=== PATIENT | female | born 1975 | race Hispanic/Latino ===

== ENCOUNTER 2016-07-19 14:06 | Outpatient (CLI) | payer MEDICAID ==
--- NOTE | 2016-07-20 12:33 | PET Report ---
PET SB TO MT subsequent: HISTORY: Restaging of colon cancer. TECHNIQUE: 11.7 millicuries F-18 FDG was administered intravenously. Noncontrast CT images and PET images were obtained from the skull base to the proximal thighs. Fused images were reviewed on a workstation. The patient's blood glucose level measured 94. COMPARISON: 12/09/14. FINDINGS: BRAIN: physiologic FDG uptake in the imaged brain. NECK: physiologic FDG uptake. MEDIASTINUM: physiologic FDG uptake. LUNGS: physiologic FDG uptake. PLEURA/PERICARDIUM: physiologic FDG uptake. THORACIC LYMPH NODES: physiologic FDG uptake. HEPATOBILIARY: The right hepatic lobe mass with central calcifications has increased from 3.9 x 2.9 cm to 5.0 x 8.0 cm. Max SUV has increased from 7.0 to 8.8. No new liver lesions are appreciated.. Mean liver SUV measures 3.1. PANCREAS: physiologic FDG uptake. SPLEEN: physiologic FDG uptake. ADRENAL GLANDS: physiologic FDG uptake. KIDNEYS/RENAL COLLECTING SYSTEMS: physiologic FDG uptake. BOWEL/MESENTERY: physiologic FDG uptake. PELVIC VISCERA: physiologic FDG uptake. ABDOMINAL/PELVIC LYMPH NODES: The previously described left lower quadrant lymph node with calcifications is stable in size at 1.3 cm but hypermetabolic activity has resolved. Max SUV measures 2.1. MUSCULOSKELETAL: physiologic FDG uptake. IMPRESSION: A mixed response to therapy is demonstrated since 12/09/14. A right hepatic lobe mass has increased in size and hypermetabolic activity as described. A left lower quadrant lymph node is now hypometabolic. No new areas of disease are appreciated.
== END 2016-07-19 14:07 | disposition home or self-care (01) ==
LOC: PET 14:06
PROVIDERS: ATTEND Internal Medicine Hematology & Oncology
DX: C18.8 Malignant neoplasm of overlapping sites of colon (principal); K76.89 Other specified diseases of liver; I89.8 Other specified noninfective disorders of lymphatic vessels and lymph nodes
CPT/HCPCS: 78815; 82962; A9552

== ENCOUNTER 2017-01-24 08:14 | Outpatient (CLI) | payer MEDICAID ==
[2017-01-24] MEDS ORDERED: FLUSH HEPARIN IV ONE ×2 (10:18→11:15)
--- NOTE | 2017-01-25 09:45 | PET Report ---
PET/CT:01/24/17 08:14:00 CLINICAL: Colon cancer restaging. RADIOPHARMACEUTICAL: 15.7mCi F18-FDG. COMPARISON: 07/19/16 PET/CT TECHNIQUE- Following intravenous injection of F-18 FDG and an approximately 60 minute uptake period, CT and PET images from the mid skull to the upper thighs were acquired with the patient in the fasted state. No contrast was administered. The CT protocol used for this PET CT study is designed for attenuation correction and anatomic localization of PET abnormalities. This dressmaker or tailor CT is not desired to produce and cannot replace, [id number] diagnostic CT scans with specific imaging protocols for different body parts and indications. Plasma glucose at the time of this test: 74g/dl. The standardized uptake values (SUV) are normalized to patient body weight and indicate the highest activity concentration (SUV max) in a given disease site. FINDINGS: Brain--Physiologic FDG uptake in the visualized regions of the brain. Neck--Physiologic FDG uptake . Chest--Physiologic FDG uptake in mediastinal blood pool and myocardium. Lungs--No abnormal uptake. A non-FDG avid right lower lobe lung nodule is slightly smaller and measures 7 x 7 mm. Pleura/pericardium--No abnormal uptake. Thoracic nodes--No abnormal uptake. Hepatobiliary--The previously described hepatic mass has the size and measures 4.8 x 3.8 x 5.1 cm with SUV 7.3 compared to 8.0 x 5.0 cm and SUV 8.8. Calcifications are identified centrally within the mass. The mass of the right lobe of the liver and of the left lobe of the liver. A second more subtle non-FDG avid peripheral inferior right hepatic mass at the liver capsule measures approximately 1.0 x 0.7 cm and is also partially calcified. This lesion has become more obvious as it has calcified. Liver background SUV mean, as a reference for comparing FDG studies, is 2.4 compared to 2.7 on the last exam. Spleen--No abnormal uptake. Pancreas--No abnormal uptake. Adrenal Glands--No abnormal uptake. Kidneys/Ureters/Bladder--No abnormal uptake. Abdominopelvic Nodes--No abnormal uptake. A heavily calcified non-FDG avid 1.2 x 0.8 cm left common iliac lymph node is not significantly changed. Bowel/Peritoneum/Mesentery--No abnormal uptake. Pelvic organs--No abnormal uptake. Bones/Soft Tissues--No abnormal uptake. Other findings: Left lower quadrant colostomy. IMPRESSION- 1. Partial response to therapy with reduced size of the previously identified hepatic metastasis.2. A second 1 cm right hepatic metastasis is non-FDG avid and has become apparent since it has developed calcifications. It was never FDG avid on prior exams. 3. A non-FDG avid right lower lobe lung nodule is slightly smaller. 4. Stable partially calcified non-FDG avid left common iliac lymph node.
== END 2017-01-24 08:15 | disposition home or self-care (01) ==
LOC: PET 08:14
PROVIDERS: ATTEND Internal Medicine Hematology & Oncology
DX: C78.7 Secondary malignant neoplasm of liver and intrahepatic bile duct (principal); C18.8 Malignant neoplasm of overlapping sites of colon; R91.1 Solitary pulmonary nodule; Z93.3 Colostomy status; J45.901 Unspecified asthma with (acute) exacerbation; J18.9 Pneumonia, unspecified organism; F32.9 Major depressive disorder, single episode, unspecified; Z79.899 Other long term (current) drug therapy
CPT/HCPCS: 78815; 82962; A9552; J1642

== ENCOUNTER 2017-06-27 11:00 | Outpatient (CLI) | payer MEDICAID ==
[2017-06-27 12:01] LABS: Blood Urea Nitrogen 10 mg/dL (7-17)
--- NOTE | 2017-06-27 14:44 | Cat Scan Report ---
FINAL REPORT EXAM: CT ABDOMEN PELVIS W CON HISTORY: C18.8 MALIGNANT NEOPLASM OF COLON TECHNIQUE: CT of the abdomen and pelvis was performed after the administration of intravenous contrast. Subsequently, CT of the abdomen and pelvis was performed in the delayed phase. Reconstructions were included in the coronal and sagittal planes. PRIORS: None. FINDINGS: Lower thorax: 3 millimeter subpleural nodule is seen in the lateral aspect of the right lower lobe on series 3, image 131. The visualized portions of the heart are normal. Liver: There is a large, heterogeneous multi lobular mass within right hepatic lobe centered within the 5th and 6th segments. Maximum transaxial dimensions of this mass are 10.0 x 6.7 centimeters. Several internal calcifications are seen within this mass. Another focal hypoattenuating mass is seen within the left hepatic lobe, segment 3 measuring 2.9 x 2.2 centimeters. Another small focal hypoattenuating focus is seen adjacent to the fissure for ligamentum teres measuring 2.8 x 1.2 centimeters. There is mild intrahepatic biliary ductal dilation secondary to the large right hepatic mass. Another tiny low-attenuation right hepatic lesion is seen separate from the larger mass may represent a simple cyst or additional site of metastasis. Gallbladder/ biliary system: No cholelithiasis. The common bile duct appears nondilated. Spleen: No splenic lesions are seen. Pancreas: No pancreatic lesions are seen. No pancreatic duct dilation. Kidneys: No renal masses, cysts or hydronephrosis. There is a 3 millimeter calculus in the inferior pole of the left kidney. No right renal calculi. Adrenal glands: No adrenal masses. Vasculature: The abdominal and pelvic vasculature is patent without variant anatomy. Lymph nodes: No enlarged lymph nodes are seen in the abdomen or pelvis. Bowel, mesentery, peritoneum: A heterogeneous mass is seen at the level of the lower rectum, likely extending into the posterior aspect of the vagina. The uterine cervix is ill-defined and may be involved with tumor as well. There is a short segment of normal caliber bowel with another heterogeneous mass involving the proximal sigmoid colon measuring 3.9 centimeters in length. Left lower quadrant diverting colostomy is seen. No free fluid or free air. The appendix is normal. No colonic diverticulosis. Urinary bladder: No filling defects are seen. Pelvis: Probable dominant left ovarian follicle is seen. Abdominal wall: No abdominal wall hernia or other subcutaneous findings. Bones: Probable L3 vertebral body hemangioma is seen. No definite skeletal metastases. IMPRESSION: 1. Heterogeneous mass involving the lower rectum, likely invading the posterior aspect of the vagina and possibly the uterine cervix concerning for neoplasm. Additional focal mass involving the proximal sigmoid colon. For better anatomic detail, consider further evaluation with pelvic MRI to completely assess the involved pelvic structures. 2. Multiple hepatic masses concerning for metastatic disease. 3. 3 millimeter right lower lobe pulmonary nodule which may represent a granuloma versus metastatic disease. 4. Nonobstructing left renal calculus.
--- NOTE | 2017-06-27 15:02 | Cat Scan Report ---
FINAL REPORT EXAM: CT CHEST W CON HISTORY: C18.8 MALIGNANT NEOPLASM OF COLON TECHNIQUE: CT of chest with IV contrast. Coronal and sagittal reconstructed images provided. PRIORS: None currently available. FINDINGS: 4.7 mm subpleural solid nodule right upper lobe series 3:39. 4.1 mm solid nodule right upper lobe series 3:61. 8.9 x 7.6 mm spiculated solid nodule in the right lower lobe series 3:63. 3.5 mm pleural-based solid nodule right lower lobe series 3:81. 4.5 mm pleural-based solid nodule near the dome of the diaphragm series 3:86. No pneumothorax. No effusion. No consolidation. No endobronchial lesion. Main pulmonary arteries are unremarkable. No pulmonary embolus. No aortic aneurysm. No dissection. Heart size unremarkable. No pericardial effusion. There is no axillary adenopathy. There is no hilar or mediastinal mass or adenopathy. Images of the esophagus are unremarkable. Images of the thyroid gland are unremarkable. Several low-attenuation lesions with heterogeneous different phases of enhancement are present within the liver suggesting metastatic disease. Largest lesion appears to be in the right and left liver on series 3:17 measuring approximately 8 x 5 cm. No suspicious osseous lesions on this limited examination of the skeleton. Metastatic disease better evaluated with bone scan. Degenerative changes are present in the spine. Right port catheter tip is present within the SVC. IMPRESSION: Several hepatic heterogeneous irregular low-attenuation lesions in different phases of enhancement suggest metastatic disease. Pulmonary nodules in the right lung are suspicious particularly the spiculated nodule in the right lower lobe.
== END 2017-06-27 11:01 | disposition home or self-care (01) ==
LOC: CT 11:00
PROVIDERS: ATTEND Internal Medicine Hematology & Oncology
DX: C18.8 Malignant neoplasm of overlapping sites of colon (principal); K76.89 Other specified diseases of liver; R91.8 Other nonspecific abnormal finding of lung field; N20.0 Calculus of kidney; M47.894 Other spondylosis, thoracic region; J45.901 Unspecified asthma with (acute) exacerbation; J18.9 Pneumonia, unspecified organism
CPT/HCPCS: 36415; 71260; 74177; 82565; 84520; Q9967

== ENCOUNTER 2017-07-15 15:02 | Outpatient (CLI) | payer MEDICAID | END 2017-07-15 15:03 | disposition home or self-care (01) | LOC: LABHHL 15:02 | PROVIDERS: ATTEND Internal Medicine Hematology & Oncology | DX: C22.8 Malignant neoplasm of liver, primary, unspecified as to type (principal) | CPT/HCPCS: 36415 ==

== ENCOUNTER 2017-07-31 22:40 | Emergency (ER) | payer MEDICAID ==
[2017-08-01 03:57] LABS: Bilirubin,Urine NEG (Negative); Blood,Urine NEG (Negative); Color,Urine Yellow (Yellow); Mucus,Urine FEW /HPF; Nitrite,Urine NEG (Negative); Protein,Urine <15 mg/dL mg/dL (Negative)
[2017-08-01] MEDS ORDERED: MORPHINE IV ONE ×2 (04:17→06:40)
[2017-08-01] MEDS ORDERED: ZOFRAN IV ONE (04:18)
[2017-08-01 05:00] LABS: Hematocrit 36.1 % (30.3-42.9); Hemoglobin 11.3 gm/dl (10.1-14.3); Mean Corpuscular HGB Conc 31 % (30-34); Mean Corpuscular Hemoglobin 26 pg (28-32); Mean Corpuscular Volume 83 fl (79-97); Platelet Count 298 K/mm3 (140-440); Red Blood Count 4.33 M/mm3 (3.65-5.03)
[2017-08-01 05:03] LABS: Red Cell Distribution Width 20.4 % (13.2-15.2)
[2017-08-01 05:11] LABS: INR 1.04 (0.87-1.13)
[2017-08-01 05:14] LABS: Alanine Aminotransferase 27 units/L (7-56); Albumin 3.5 g/dL (3.9-5); BUN/Creatinine Ratio 18; Blood Urea Nitrogen 7 mg/dL (7-17); Calcium 8.3 mg/dL (8.4-10.2); Hemolysis Index 2; Lipase 191 units/L (13-60)
[2017-08-01] MEDS ORDERED: VALIUM IV ONE (06:40)
[2017-08-01] MEDS ORDERED: NACL 0.9% 500 ML 500 ML IV ONE (06:42)
[2017-08-01 06:55] LABS: Band Neutrophils # (Manual) 0.2 K/mm3; Myelocytes # (Manual) 0.2 K/mm3; Total Cells Counted 100
[2017-08-01 06:56] LABS: Giant Platelets Few; Hypochromasia 1+; Platelet Estimate Consistent w Auto
[2017-08-01] MEDS ORDERED: DILAUDID IV ONE (08:08)
--- NOTE | 2017-08-01 08:40 | Cat Scan Report ---
CT abdomen and pelvis with contrast: Known colonic malignancy with metastasis presenting with abdominal pain. Following IV contrast administration images are obtained from the lower chest to the ischium. Coronal and sagittal 2-D reformatted images included. Comparison made to prior exam on June 27, 2017. Images of the lung bases again demonstrates a small right subpleural nodule. In addition there is a new 4.4 mm circumscribed nodule at the right lung base posteriorly. Large, lobulated hypoattenuating mass present in the right lobe. Several mildly dilated ducts peripheral to the mass. The superior aspect of the right lobe is inhomogeneous but no discrete mass. There are smaller hypoattenuating masses in the left lobe and near the ligamentum teres which are unchanged. There is a moderate fecal load in the proximal colon. An ostomy is located in the left lower quadrant. There are dilated small bowel loops in the left lower quadrant. There is a large rectal inhomogeneous mass. There is a right adnexal cyst. No bone lesions identified. No adenopathy identified. Compared to the patient's prior examination the liver masses and rectal mass are generally unchanged. The dilated small bowel loops are new. A right adnexal cyst is new and a left adnexal cyst previously noted has resolved. Impressions: 1. New right lower lobe nodule consistent with metastasis. 2. Dilated small bowel loops are noted. Possibility of partial small bowel obstruction is raised. 3. Staple hepatic metastases.
[2017-08-01] MEDS ORDERED: NACL 0.9% 1000 ML 1,000 ML IV ONE (08:44)
[2017-08-01] MEDS ORDERED: MOTRIN PO ONE (08:44)
--- NOTE | 2017-08-01 08:46 | Emergency Department Report ---
HPI - General Chief Complaint: Abdominal Pain Time Seen by Provider: 08/01/17 06:23 - HPI HPI: The patient is a 41-year-old female with a history of advanced colon cancer and liver cancer, who presents for evaluation of abdominal pain. The patient reports 2 days of recurrence of right upper quadrant abdominal pain, 10/10 in severity, sharp and throbbing in quality, exacerbated with movement. She shares that she has experienced similar pains in the past secondary to her long- standing malignant disease. She shares that she unsuccessfully attempted treating her pain with by mouth morphine tablets at home. She also admits to a nonproductive cough for the past one to 2 weeks, worsening for the past couple of days. The patient denies headache, neck pain or stiffness chest pain, dyspnea , blood in the stool, hematuria, flank pain, genital discharge. ED Past Medical Hx - Past Medical History Previous Medical History?: Yes Hx Hypertension: No Hx Congestive Heart Failure: No Hx Diabetes: No Hx Liver Disease: No Hx Renal Disease: No Hx Seizures: No Hx Asthma: Yes Hx COPD: No Additional medical history: 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, on Chemo - Surgical History Past Surgical History?: Yes Additional Surgical History: PAC - R, ex-lap to remove tumor, colostomy - Social History Smoking Status: Current Every Day Smoker Substance Use Type: Marijuana - Medications Home Medications: Home Medications Medication Instructions Recorded Confirmed Last Taken Type Albuterol Sulfate [Proventil HFA] 1 - 2 puff IH Q4H PRN #1 [email or web address] 07/13/14 08/01/17 Unknown Rx HYDROcodone/APAP 7.5-325 [[place] 1 each PO Q4-6H PRN 08/01/17 08/01/17 Unknown History 7.5/325] Ondansetron [Zofran ODT TAB] 8 mg PO Q8HR PRN 08/01/17 08/01/17 Unknown History ED Review of Systems ROS: Stated complaint: RECTAL BLEEDING; ABD PAIN; FEVER Other details as noted in HPI Constitutional: denies: fever ENT: denies: throat or neck pain Respiratory: denies: cough, shortness of breath Cardiovascular: denies: chest pain Endocrine: denies unexplained weight loss or gain Gastrointestinal: reports abdominal pain, nausea Genitourinary: denies: dysuria Musculoskeletal: denies: leg swelling Skin: denies: rash Neurological: denies: headache Hematological/Lymphatic: denies: easy bleeding or easy bruising Psych: denies sadness or hopelessness Physical Exam - Physical Exam Vital Signs: Vital Signs 07/31/17 08/01/17 08/01/17 22:50 02:58 03:01 Temperature 100.9 F H 98.4 F Pulse Rate 116 H 87 Respiratory 16 13 14 Rate Blood Pressure 132/60 Blood Pressure 126/86 [Right] O2 Sat by Pulse 100 99 94 Oximetry 08/01/17 08/01/17 08/01/17 05:00 06:00 07:00 Temperature Pulse Rate 96 H 85 91 H Respiratory 10 L 14 13 Rate Blood Pressure Blood Pressure 111/71 111/69 123/75 [Right] O2 Sat by Pulse 95 96 98 Oximetry Physical Exam: General: well-nourished, well-developed, no acute distress Head: Normocephalic, atraumatic Eyes: normal sclera ENT: Mucous membranes are pale and dry Neck: trachea midline, neck supple, No neck stiffness, no cervical adenopathy Respiratory: Breath sounds equal bilaterally, no wheezing, rales, or rhonchi Cardio: S1 and S2 present, no murmurs, rubs, gallops, capillary refill is delayed Abdomen: Normoactive bowel sounds, soft abdomen, RUQ and epigastric abd pain, no rigidity, no guarding or rebound tenderness Musc: No pitting edema Skin: No rash Neuro: no facial drooping, normal speech Psych: Normal affect ED Course Vital Signs 07/31/17 08/01/17 08/01/17 22:50 02:58 03:01 Temperature 100.9 F H 98.4 F Pulse Rate 116 H 87 Respiratory 16 13 14 Rate Blood Pressure 132/60 Blood Pressure 126/86 [Right] O2 Sat by Pulse 100 99 94 Oximetry 08/01/17 08/01/17 08/01/17 05:00 06:00 07:00 Temperature Pulse Rate 96 H 85 91 H Respiratory 10 L 14 13 Rate Blood Pressure Blood Pressure 111/71 111/69 123/75 [Right] O2 Sat by Pulse 95 96 98 Oximetry ED Medical Decision Making - Lab Data Result diagrams: 08/01/17 04:36 08/01/17 04:36 - Medical Decision Making The patient was seen and examined by myself. The patient is placed on a monitor and storage bin tender and continuous pulse ox. On initial evaluation, the patient was found to be in no distress. Evaluation orders are placed. IV access is established and the patient is given 1 L normal saline fluid bolus and Zofran for nausea, and IV morphine for pain. The patient is given a tablet of Motrin for her low-grade fever of 100.9 Fahrenheit Lab results exhibited elevated WBC of 18, and mildly elevated lipase of 190. Otherwise labs were non-concerning including hemoglobin, hematocrit, electrolytes, renal function, LFTs. CT scan abdomen and pelvis exhibits multiple hepatic masses, right lower pulmonary lobe mass, colonic masses, and was grossly unchanged from previous CT scan. Medical records are reviewed and revealed that the patient has long-standing history of chronic elevated WBC. As the patient is febrile and recently on chemotherapy, the patient will be treated for suspected bacteremia. The patient is given IV Zosyn. The on-call hospitalist service was contacted. They agreed to admit the patient for further treatment and close monitoring. The ED admit order was placed. The patient was admitted in guarded condition. Critical care attestation.: If time is entered above; I have spent that time in minutes in the direct care of this critically ill patient, excluding procedure time. ED Disposition Clinical Impression: Acute abdominal pain in right upper quadrant, Colon cancer metastasized to multiple sites, Mass of multiple sites of liver Pancreatitis, acute Qualifiers: Pancreatitis type: unspecified pancreatitis type Acute pancreatitis complication: unspecified Qualified Code(s): K85.90 - Acute pancreatitis without necrosis or infection, unspecified Disposition: OP ADMIT IP TO THIS HOSP Is pt being admited?: Yes Does the pt Need Aspirin: Yes Condition: Serious Instructions: Abdominal Pain (ED) Referrals: COLEEN CONNELLY MD [Primary Care Provider] - 3-5 Days Time of Disposition: 08:15
[2017-08-01] MEDS ORDERED: BABY ASPIRIN PO ONE (09:16)
--- NOTE | 2017-08-01 09:56 | XRay Report ---
Portable chest: Fever, cough. There is a port entering the right jugular vein the tip at the superior cavoatrial junction. The lungs are clear the mediastinal contour is unremarkable. There is no interval change when compared to prior examination in July 2014. Impression: No acute findings.
[2017-08-01] MEDS ORDERED: PROAIR IH PRN (11:54)
[2017-08-01] MEDS ORDERED: ZOFRAN IV PRN (11:55)
[2017-08-01] MEDS ORDERED: DILAUDID IV PRN (11:56)
--- NOTE | 2017-08-01 11:59 | History and Physical Report ---
History of Present Illness Date of examination: 08/01/17 Date of admission: 08/01/17 09:31 Chief complaint: Right upper quadrant pain History of present illness: 41 year old female with past medical history significant for stage IV colon cancer metastasized to the liver and lung on chemotherapy, tobacco abuse presented to the emergency department complaining of right upper quadrant pain for the last 2 weeks, pain is sometimes sharp and sometimes dull aching pain, 10 out of 10 in intensity at its max, with radiation to the right shoulder, associated with fever, nausea and vomiting. Aggravated by eating elevated was hydrocodone. Patient has been followed Dr. Tolbert for her chemotherapy. Patient believed that the pain is due to the morphine she was given. She said the pain started after she took 2 pills of morphine. Patient said she had flu 2 weeks ago and was given Tamiflu she said she took all of them except one tab. Currently patient denied runny nose, cough. After she was given pain medications in the emergency department patient said abdominal pain subsided, no fever, no nausea or vomiting, rather she said she is starving. Patient denied chest pain, palpitations. REVIEW OF SYSTEMS: GENERAL: no weight change, no fatigue, no fever HEAD: no head ache EYES: no blurry vision, no acute visual loss EARS: no hearing loss, no discharge, no earache NOSE: no stuffiness, no sneezing, no discharge MOUTH, THROAT AND NECK: no bleeding gums, no sore throat, no swollen neck CARDIAC: no palpitations, no dyspnea on exertion, no orthopnea, no PND, no edema , no chest pain RESPIRATORY: no shortness of breath, no wheeze, no cough, no sputum, no hemoptysis, no asthma GI: As stated in the HPI. URINARY: no change in frequency, no urgency, no polyuria, no hematuria, no incontinence MUSCULOSKELETAL: no muscle weakness, no pain, no joint stiffness NEUROLOGIC: no loss of sensation/numbness, no tingling, no tremors, no weakness/ paralysis HEMATOLOGIC: no anemia, no easy bruising SKIN: no rashes ENDOCRINE: no heat/cold intolerance, no polyuria, no polydipsia, no thyroid problems, no diabetes PSYCHIATRIC: no anxiety, no depression, no suicidal ideations Past History Past Medical History: cancer Past Surgical History: bowel surgery (laparotomy with colostomy) Social history: smoking (cigarettes and marijuana), full code. denies: alcohol abuse, prescription drug abuse, IV drug use Family history: CAD (father), stroke (father) Medications and Allergies Allergies Allergy/AdvReac Type Severity Reaction Status Date / Time No Known Allergies Allergy Verified 04/14/14 07:32 Home Medications Medication Instructions Recorded Confirmed Last Taken Type Albuterol Sulfate [Proventil HFA] 1 - 2 puff IH Q4H PRN #1 hfa.[email or web address] 07/13/14 08/01/17 Unknown Rx HYDROcodone/APAP 7.5-325 [[place] 1 each PO Q4-6H PRN 08/01/17 08/01/17 Unknown History 7.5/325] Ondansetron [Zofran ODT TAB] 8 mg PO Q8HR PRN 08/01/17 08/01/17 Unknown History Active Meds: Active Medications Acetaminophen/Hydrocodone Bitart ([place] 7.5/325) 1 each PO Q4-6H PRN PRN Reason: Pain Albuterol (Proair) 2 puff IH Q4H PRN PRN Reason: Wheezing Hydromorphone HCl (Dilaudid) 1 mg IV Q4H PRN PRN Reason: Pain , Severe (7-10) Piperacillin Sod/Tazobactam Sod (Zosyn/Ns 3.375gm/50ml) 3.375 gm in 50 mls @ 100 mls/hr IV Q6HR [facility] Ondansetron HCl (Zofran) 4 mg IV Q8H PRN PRN Reason: Nausea And Vomiting Exam - Physical Exam Narrative exam: Not in cardiopulmonary distress. The patient appeared chronically sick looking. Vital signs as documented. Head exam is unremarkable. No scleral icterus . Neck is without jugular venous distension, thyromegaly, or carotid bruits. Lungs are clear to auscultation. Cardiac exam reveals regular rate and Rhythm. First and second heart sounds normal. No murmurs, rubs or gallops. Abdominal exam reveals nontender, soft. Extremities are nonedematous and both femoral and pedal pulses are normal. KNITTING SUPERVISOR: Alert and oriented 3. No focal weakness. - Constitutional Vitals: Temp Pulse Resp BP Pulse Ox 98.4 F 91 H 13 123/75 98 08/01/17 03:01 08/01/17 07:00 08/01/17 07:00 08/01/17 07:00 08/01/17 07:00 Results - Labs CBC & Chem 7: 08/01/17 04:36 08/01/17 04:36 Labs: Laboratory Last Values WBC 18.9 K/mm3 (4.5-11.0) H 08/01/17 04:36 RBC 4.33 M/mm3 (3.65-5.03) 08/01/17 04:36 Hgb 11.3 gm/dl (10.1-14.3) 08/01/17 04:36 Hct 36.1 % (30.3-42.9) 08/01/17 04:36 MCV 83 fl (79-97) 08/01/17 04:36 MCH 26 pg (28-32) L 08/01/17 04:36 MCHC 31 % (30-34) 08/01/17 04:36 RDW 20.4 % (13.2-15.2) H 08/01/17 04:36 Plt Count 298 K/mm3 (140-440) 08/01/17 04:36 Add Manual Diff Complete 08/01/17 04:36 Total Counted 100 08/01/17 04:36 Seg Neuts % (Manual) 49.0 % (40.0-70.0) 08/01/17 04:36 Band Neutrophils % 1.0 % 08/01/17 04:36 Lymphocytes % (Manual) 14.0 % (13.4-35.0) 08/01/17 04:36 Reactive Lymphs % (Man) 0 % 08/01/17 04:36 Monocytes % (Manual) 16.0 % (0.0-7.3) H 08/01/17 04:36 Eosinophils % (Manual) 15.0 % (0.0-4.3) H 08/01/17 04:36 Basophils % (Manual) 2.0 % (0.0-1.8) H 08/01/17 04:36 Metamyelocytes % 2.0 % 08/01/17 04:36 Myelocytes % 1.0 % 08/01/17 04:36 Promyelocytes % 0 % 08/01/17 04:36 Blast Cells % 0 % 08/01/17 04:36 Nucleated RBC % Not Reportable 08/01/17 04:36 Seg Neutrophils # Man 9.3 K/mm3 (1.8-7.7) H 08/01/17 04:36 Band Neutrophils # 0.2 K/mm3 08/01/17 04:36 Lymphocytes # (Manual) 2.6 K/mm3 (1.2-5.4) 08/01/17 04:36 Abs React Lymphs (Man) 0.0 K/mm3 08/01/17 04:36 Monocytes # (Manual) 3.0 K/mm3 (0.0-0.8) H 08/01/17 04:36 Eosinophils # (Manual) 2.8 K/mm3 (0.0-0.4) H 08/01/17 04:36 Basophils # (Manual) 0.4 K/mm3 (0.0-0.1) H 08/01/17 04:36 Metamyelocytes # 0.4 K/mm3 08/01/17 04:36 Myelocytes # 0.2 K/mm3 08/01/17 04:36 Promyelocytes # 0.0 K/mm3 08/01/17 04:36 Blast Cells # 0.0 K/mm3 08/01/17 04:36 WBC Morphology Not Reportable 08/01/17 04:36 Hypersegmented Neuts Not Reportable 08/01/17 04:36 Hyposegmented Neuts Not Reportable 08/01/17 04:36 Hypogranular Neuts Not Reportable 08/01/17 04:36 Smudge Cells Not Reportable 08/01/17 04:36 Toxic Granulation Not Reportable 08/01/17 04:36 Toxic Vacuolation Not Reportable 08/01/17 04:36 Dohle Bodies Not Reportable 08/01/17 04:36 Pelger-Huet Anomaly Not Reportable 08/01/17 04:36 Audrey Rods Not Reportable 08/01/17 04:36 Platelet Estimate Consistent w auto 08/01/17 04:36 Clumped Platelets Not Reportable 08/01/17 04:36 Plt Clumps, EDTA Not Reportable 08/01/17 04:36 Large Platelets Not Reportable 08/01/17 04:36 Giant Platelets Few 08/01/17 04:36 Platelet Satelliting Not Reportable 08/01/17 04:36 Plt Morphology Comment Not Reportable 08/01/17 04:36 RBC Morphology Not Reportable 08/01/17 04:36 Dimorphic RBCs Not Reportable 08/01/17 04:36 Polychromasia Not Reportable 08/01/17 04:36 Hypochromasia 1+ 08/01/17 04:36 Poikilocytosis Not Reportable 08/01/17 04:36 Anisocytosis Not Reportable 08/01/17 04:36 Microcytosis Not Reportable 08/01/17 04:36 Macrocytosis Not Reportable 08/01/17 04:36 Spherocytes Not Reportable 08/01/17 04:36 Pappenheimer Bodies Not Reportable 08/01/17 04:36 Sickle Cells Not Reportable 08/01/17 04:36 Target Cells Not Reportable 08/01/17 04:36 Tear Drop Cells Not Reportable 08/01/17 04:36 Ovalocytes Not Reportable 08/01/17 04:36 Helmet Cells Not Reportable 08/01/17 04:36 Sparks-Seibert Bodies Not Reportable 08/01/17 04:36 [place] Rings Not Reportable 08/01/17 04:36 Cristina Cells Not Reportable 08/01/17 04:36 Bite Cells Not Reportable 08/01/17 04:36 Crenated Cell Not Reportable 08/01/17 04:36 Elliptocytes Not Reportable 08/01/17 04:36 Acanthocytes (Spur) Not Reportable 08/01/17 04:36 Rouleaux Not Reportable 08/01/17 04:36 Hemoglobin C Crystals Not Reportable 08/01/17 04:36 Schistocytes Not Reportable 08/01/17 04:36 Malaria parasites Not Reportable 08/01/17 04:36 Tim Bodies Not Reportable 08/01/17 04:36 Hem Pathologist Commnt No 08/01/17 04:36 PT 14.1 Sec. (12.2-14.9) 08/01/17 04:36 INR 1.04 (0.87-1.13) 08/01/17 04:36 APTT 37.0 Sec. (24.2-36.6) H 08/01/17 04:36 Sodium 135 mmol/L (137-145) L 08/01/17 04:36 Potassium 4.0 mmol/L (3.6-5.0) 08/01/17 04:36 Chloride 97.1 mmol/L (98-107) L 08/01/17 04:36 Carbon Dioxide 27 mmol/L (22-30) 08/01/17 04:36 Anion Gap 15 mmol/L 08/01/17 04:36 BUN 7 mg/dL (7-17) 08/01/17 04:36 Creatinine 0.4 mg/dL (0.7-1.2) L 08/01/17 04:36 Estimated GFR > 60 ml/min 08/01/17 04:36 BUN/Creatinine Ratio 18 % 08/01/17 04:36 Glucose 99 mg/dL (65-100) 08/01/17 04:36 Lactic Acid 2.00 mmol/L (0.7-2.0) 08/01/17 09:46 Calcium 8.3 mg/dL (8.4-10.2) L 08/01/17 04:36 Total Bilirubin 0.40 mg/dL (0.1-1.2) 08/01/17 04:36 AST 48 units/L (5-40) H 08/01/17 04:36 ALT 27 units/L (7-56) 08/01/17 04:36 Alkaline Phosphatase 291 units/L (35-129) H 08/01/17 04:36 Total Protein 6.8 g/dL (6.3-8.2) 08/01/17 04:36 Albumin 3.5 g/dL (3.9-5) L 08/01/17 04:36 Albumin/Globulin Ratio 1.1 % 08/01/17 04:36 Lipase 191 units/L (13-60) H 08/01/17 04:36 Urine Color Yellow (Yellow) 07/31/17 Unknown Urine Turbidity Clear (Clear) 07/31/17 Unknown Urine pH 6.0 (5.0-7.0) 07/31/17 Unknown Ur Specific [place] 1.025 (1.003-1.030) 07/31/17 Unknown Urine Protein <15 mg/dl mg/dL (Negative) 07/31/17 Unknown Urine Glucose (UA) Neg mg/dL (Negative) 07/31/17 Unknown Urine Ketones Neg mg/dL (Negative) 07/31/17 Unknown Urine Blood Neg (Negative) 07/31/17 Unknown Urine Nitrite Neg (Negative) 07/31/17 Unknown Urine Bilirubin Neg (Negative) 07/31/17 Unknown Urine Urobilinogen 2.0 mg/dL (<2.0) 07/31/17 Unknown Ur Leukocyte Esterase Neg (Negative) 07/31/17 Unknown Urine WBC (Auto) 1.0 /HPF (0.0-6.0) 07/31/17 Unknown Urine RBC (Auto) 6.0 /HPF (0.0-6.0) 07/31/17 Unknown U Epithel Cells (Auto) 5.0 /HPF (0-13.0) 07/31/17 Unknown Urine Mucus Few /HPF 07/31/17 Unknown Blood Type A POSITIVE 08/01/17 04:36 Antibody Screen Negative 08/01/17 04:36 - Imaging and Cardiology CT scan - abdomen: image reviewed Assessment and Plan Assessment and plan: Pancreatitis - Related incident by typical abdominal pain and elevated lipase - Bowel rest, pain control, IV fluids Stage IV cancer metastasized to the liver, lung - Pain control - Oncology consult Leukocytosis, with fever -Due to SIRS versus cancer - Patient started empirically with Zosyn DVT prophylaxis - Lovenox Disposition - Admit to medical floor. Advance Directives: Yes VTE prophylaxis?: Chemical Plan of care discussed with patient/family: Yes
[2017-08-01] MEDS ORDERED: NORCO 7.5/325 PO PRN (12:00)
[2017-08-01] MEDS ORDERED: ZOSYN/NS 3.375GM/50ML 3.375 GM/50 ML BAG IV SCH (12:00)
[2017-08-01] MEDS ORDERED: PROVENTIL IH PRN (12:15)
[2017-08-01] MEDS ORDERED: FLUSH HEPARIN IV ONE (12:58)
[2017-08-01 13:51] VITALS: BP 117/69
--- NOTE | 2017-08-01 18:21 | Discharge Summary ---
Providers - Providers Date of discharge: 08/01/17 08/01/17 11:57 Consult to Physician [CONS] Routine Consulting Provider: PARUL CASTILLO Reason For Exam: colon ca on chemo followed by Dr Tomasz Landis consult to:: Hem/Onc Notified:: Y If yes, spoke with:: VERONICA SEVILLA Time called:: 12:20 Primary care physician: COLEEN CONNELLY Hospitalization Reason for admission: pancreatitis Condition: Serious Pertinent studies: CT abdomen and pelvis Hospital course: Patient left AGAINST MEDICAL ADVICE when she was in the emergency department. Management was started as stated in the HPI. Disposition: DC-07 LEFT AGAINST MED ADVICE Time spent for discharge: 25 minutes - Discharge Diagnoses (1) Acute abdominal pain in right upper quadrant Status: Acute (2) Colon cancer metastasized to multiple sites Status: Chronic (3) Pancreatitis, acute Status: Acute Qualifiers: Pancreatitis type: unspecified pancreatitis type Acute pancreatitis complication: unspecified Qualified Code(s): K85.90 - Acute pancreatitis without necrosis or infection, unspecified Core Measure Documentation - Palliative Care Palliative Care/ Comfort Measures: Not Applicable - Core Measures Any of the following diagnoses?: none Exam - Physical Exam Narrative exam: Not in cardiopulmonary distress. The patient appeared chronically sick looking. Vital signs as documented. Head exam is unremarkable. No scleral icterus . Neck is without jugular venous distension, thyromegaly, or carotid bruits. Lungs are clear to auscultation. Cardiac exam reveals regular rate and Rhythm. First and second heart sounds normal. No murmurs, rubs or gallops. Abdominal exam reveals nontender, soft. Extremities are nonedematous and both femoral and pedal pulses are normal. EVIDENCE SPECIALIST: Alert and oriented 3. No focal weakness. - Constitutional Vitals: Temp Pulse Resp BP Pulse Ox 98.4 F 97 H 21 117/69 97 08/01/17 11:00 08/01/17 11:00 08/01/17 11:00 08/01/17 11:00 08/01/17 11:00 Plan Activity: other (Patient left AMA) Diet: advance as tolerated Follow up with: COLEEN CONNELLY MD [Primary Care Provider] - 3-5 Days
== END 2017-08-01 13:52 | disposition left against medical advice (07) ==
LOC: ED 22:40 → UNDOADMIN 08-01 09:31 → 4A 08-01 09:31 → ED 08-01 13:52
DX: K85.90 Acute pancreatitis without necrosis or infection, unspecified (principal); F17.200 Nicotine dependence, unspecified, uncomplicated; F12.10 Cannabis abuse, uncomplicated; C18.9 Malignant neoplasm of colon, unspecified; C78.7 Secondary malignant neoplasm of liver and intrahepatic bile duct
CPT/HCPCS: 36415; 71045; 74177; 80053; 81001; 82140; 83690; 85007; 85025; 85610; 85730; 86850; 86900; 86901; 87040; 87400; 96361; 96374; 96375; 99285; J1170; J1642; J2270; J2405; J7030; J7040; Q9967; J2543

== ENCOUNTER 2017-08-12 18:13 | Emergency (ER) | payer MEDICAID ==
[2017-08-12] MEDS ORDERED: NACL 0.9% 1000 ML 1,000 ML IV ONE (18:52)
[2017-08-12 19:10] LABS: Basophils # (Auto) 0.1 K/mm3 (0.0-0.1); Basophils % (Auto) 1.2 % (0.0-1.8); Eosinophils # (Auto) 0.4 K/mm3 (0.0-0.4); Eosinophils % (Auto) 4.1 % (0.0-4.3); Hematocrit 35.1 % (30.3-42.9); Hemoglobin 11.6 gm/dl (10.1-14.3); Lymphocytes # (Auto) 1.3 K/mm3 (1.2-5.4); Lymphocytes % (Auto) 12.8 % (13.4-35.0); Mean Corpuscular HGB Conc 33 % (30-34); Mean Corpuscular Hemoglobin 28 pg (28-32); Mean Corpuscular Volume 84 fl (79-97); Monocytes # (Auto) 0.5 K/mm3 (0.0-0.8); Monocytes % (Auto) 4.9 % (0.0-7.3); Platelet Count 377 K/mm3 (140-440); Red Blood Count 4.21 M/mm3 (3.65-5.03)
[2017-08-12 19:12] LABS: Red Cell Distribution Width 20.5 % (13.2-15.2)
[2017-08-12 19:21] LABS: INR 0.95 (0.87-1.13)
[2017-08-12 19:22] LABS: Partial Thromboplastin Time 31.5 Sec. (24.2-36.6)
[2017-08-12 19:29] LABS: Alanine Aminotransferase 22 units/L (7-56); Albumin 3.9 g/dL (3.9-5); BUN/Creatinine Ratio 18; Blood Urea Nitrogen 7 mg/dL (7-17); Calcium 8.9 mg/dL (8.4-10.2); Hemolysis Index 4; Lipase 31 units/L (13-60)
[2017-08-12] MEDS ORDERED: DILAUDID IV ONE (22:50)
--- NOTE | 2017-08-12 23:04 | Emergency Department Report ---
ED GI Bleed HPI - General Chief complaint: GI Bleed Stated complaint: RECTAL BLEEDING Time Seen by Provider: 08/12/17 22:37 Source: patient, RN notes reviewed, old records reviewed Mode of arrival: Ambulatory Limitations: No Limitations - History of Present Illness Initial comments: This is a 41-year-old female, whom I have evaluated in the past, patient has a past medical history of diverting colostomy, colon cancer with metastatic disease, right-sided thoracic [place], patient seen in this hospital on August 01, had a CT scan of the abdomen and pelvis which demonstrated nonspecific dilated bowel loops, as well as nonspecific inhomogeneous rectal mass. Oncology: Dr. Castillo Patient presents to the ER with a complaint of rectal bleeding since 5:00 this evening. It is constant. There is no trauma. It is associated with diffuse abdominal pain which started one hour ago. The pain is sharp, increases with palpation and decreases with rest. Patient endorses no blood in her colostomy bag. She denies urinary symptoms. She denies chest pain and shortness of breath. MD complaint: blood streaked stool, gross hematochezia -: Gradual Location: diffuse Radiation: none Quality: cramping Consistency: constant Improves with: none Worsens with: none Context: history of GI bleed, other Associated Symptoms: abdominal pain. denies: vomiting, epistaxis, fever/chills , headaches, loss of appetite, malaise, easy bruising, rash, other bleeding, shortness of breath, syncope, weakness - Related Data Home Medications Medication Instructions Recorded Confirmed Last Taken HYDROcodone/APAP 7.5-325 [[place] 1 each PO Q4-6H PRN 08/01/17 08/01/17 Unknown 7.5/325] Ondansetron [Zofran ODT TAB] 8 mg PO Q8HR PRN 08/01/17 08/01/17 Unknown Previous Rx's Medication Instructions Recorded Last Taken Type Albuterol Sulfate [Proventil HFA] 1 - 2 puff IH Q4H PRN #1 hfa.aer.ad 07/13/14 Unknown Rx Ondansetron [Zofran Odt] 4 mg PO Q8HR PRN #20 tab.rapdis 08/13/17 Unknown Rx oxyCODONE [Roxicodone] 5 mg PO Q6HR PRN #15 tablet 08/13/17 Unknown Rx Allergies Allergy/AdvReac Type Severity Reaction Status Date / Time No Known Allergies Allergy Verified 04/14/14 07:32 ED Review of Systems ROS: Stated complaint: RECTAL BLEEDING Other details as noted in HPI ED Past Medical Hx - Past Medical History Previous Medical History?: Yes Hx Hypertension: No Hx Congestive Heart Failure: No Hx Diabetes: No Hx Liver Disease: No Hx Renal Disease: No Hx of Cancer: Yes (colon) Hx Seizures: No Hx Asthma: Yes Hx COPD: No Additional medical history: 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, on Chemo - Surgical History Past Surgical History?: Yes Additional Surgical History: PAC - R, ex-lap to remove tumor, colostomy - Social History Smoking Status: Current Every Day Smoker Substance Use Type: Non Opiate Pain, Prescribed - Medications Home Medications: Home Medications Medication Instructions Recorded Confirmed Last Taken Type Albuterol Sulfate [Proventil HFA] 1 - 2 puff IH Q4H PRN #1 hfa.aer.ad 07/13/14 08/01/17 Unknown Rx HYDROcodone/APAP 7.5-325 [[place] 1 each PO Q4-6H PRN 08/01/17 08/01/17 Unknown History 7.5/325] Ondansetron [Zofran ODT TAB] 8 mg PO Q8HR PRN 08/01/17 08/01/17 Unknown History Ondansetron [Zofran Odt] 4 mg PO Q8HR PRN #20 tab.rapdis 08/13/17 Unknown Rx oxyCODONE [Roxicodone] 5 mg PO Q6HR PRN #15 tablet 08/13/17 Unknown Rx ED Physical Exam - General Limitations: No Limitations General appearance: alert, in no apparent distress - Head Head exam: Present: atraumatic, normocephalic - Eye Eye exam: Present: normal appearance, EOMI. Absent: nystagmus - ENT ENT exam: Present: normal exam, normal orophraynx, mucous membranes moist, normal external ear exam - Neck Neck exam: Present: normal inspection, full ROM - Respiratory Respiratory exam: Present: normal lung sounds bilaterally. Absent: respiratory distress - Cardiovascular Cardiovascular Exam: Present: regular rate, normal rhythm, normal heart sounds. Absent: systolic murmur, diastolic murmur, rubs, gallop - GI/Abdominal GI/Abdominal exam: Present: soft, tenderness, normal bowel sounds, other (there is mild diffuse abdominal tenderness with no rebound, guarding or peritoneal signs). Absent: distended, guarding, rebound, rigid, pulsatile mass - Rectal Rectal exam: Present: normal inspection, normal rectal tone, bloody stool, other (escorted by nurse Jada) - Extremities Exam Extremities exam: Present: normal inspection, full ROM, normal capillary refill. Absent: pedal edema, joint swelling, calf tenderness - Back Exam Back exam: Present: normal inspection, CVA tenderness (R) - Neurological Exam Neurological exam: Present: alert, oriented X3, CN II-XII intact, normal gait, other (Extraocular movements intact. Tongue midline. No facial droop. Facial sensation intact to light touch in the V1, V2, V3 distribution bilaterally. 5 and 5 strength in 4 extremities.. Sensation is intact to light touch in 4 extremities.). Absent: motor sensory deficit - Psychiatric Psychiatric exam: Present: anxious - Skin Skin exam: Present: warm, dry, intact, normal color. Absent: rash ED Course Vital Signs 08/12/17 08/13/17 08/13/17 18:48 01:28 03:25 Temperature 97.9 F Pulse Rate 86 87 Respiratory 18 16 13 Rate Blood Pressure 118/70 Blood Pressure [Left] O2 Sat by Pulse 100 100 Oximetry 08/13/17 08/13/17 08/13/17 03:27 03:29 03:30 Temperature Pulse Rate 75 77 81 Respiratory 13 14 14 Rate Blood Pressure Blood Pressure [Left] O2 Sat by Pulse Oximetry 08/13/17 03:51 Temperature Pulse Rate 79 Respiratory 16 Rate Blood Pressure Blood Pressure 103/62 [Left] O2 Sat by Pulse 96 Oximetry - Reevaluation(s) Reevaluation #1: 08/12/17 23:11 Differential diagnosis, including but not limited to: Obstruction, colitis, diverticulitis, renal colic, urinary tract infection, worsening metastatic disease, bleeding rectal mass Assessment and plan: 41-year-old female with diverting colostomy, no blood from colostomy tube, recent CAT scan demonstrated an inhomogeneous rectal mass, patient endorses no recent colonoscopy, recently demonstrated rectal mass is the most likely etiology for the patient's bleeding. She has left-sided CVA tenderness and diffuse abdominal tenderness with no rebound or guarding. She is afebrile with reassuring vital signs. Patient's pain will be controlled with hydromorphone. IV fluids ordered. Hemoglobin, hematocrit appeared to be stable when compared to a prior evaluation. Case was discussed with gastroenterology on-call, Dr. Messina, who indicated that his group would be happy to see the patient is a follow-up, but he further opined that the patient would likely benefit from oncology evaluation for possible radiation therapy, given history of known rectal mass. Reevaluation #2: 08/12/17 23:26 Case discussed with oncology, Dr. Montelongo, he indicates patient can follow-up in the morning, 9:00. I have discussed the patient's physical exam findings, laboratory studies, as well as my discussion with gastroenterology. Address: [address] [place] [address] Reevaluation #3: 08/13/17 02:29 Patient feels improved. Belly soft on repeat exam. Patient tolerating oral feeds without difficulty. CT scan of the abdomen and pelvis is unchanged from prior CT scan 2 weeks ago. Patient endorses no vomiting within the past week. She further endorses that she is producing output from her ostomy. Therefore, clinically, I think bowel obstruction is unlikely. Reevaluation #4: 08/13/17 02:31 Patient tolerating oral feeds in the ER without difficulty. Reevaluation #5: 08/13/17 05:27 Prior to leaving, the patient informs me that she passed a large amount of stool from her colostomy, and ate a burrito without difficulty. ED Medical Decision Making - Lab Data Result diagrams: 08/12/17 18:54 08/12/17 18:54 Vital Signs 08/12/17 18:48 Temperature 97.9 F Pulse Rate 86 Respiratory 18 Rate Blood Pressure 118/70 O2 Sat by Pulse 100 Oximetry - EKG Data -: EKG Interpreted by Me EKG shows normal: sinus rhythm Rate: normal - EKG Data 08/12/17 23:13 Normal sinus, 80 bpm, normal axis, normal intervals, not having chest pain, not morphologically consistent with ST elevation myocardial infarction - Radiology Data Radiology results: pending Referring Physician: COLEEN JO Patient Name: BRUCE CASIANO Date of : 1975 Sex: Female Report Date: 2017-08-12 Report Status: Finalized Findings [facility] [address] [place] [address] Cat Scan Report Signed Patient: BRUCE CASIANO MR#: [id number] : 1975 Acct:[id number] Age/Sex: 41 / F ADM Date: 08/12/17 Loc: ED Attending Dr: Ordering Physician: COLEEN JO MD Date of Service: 08/13/17 Procedure(s): CT abdomen pelvis w con Accession Number(s): [id number] cc: COLEEN JO MD FINAL REPORT EXAM: CT ABDOMEN PELVIS W CON HISTORY: abd pain TECHNIQUE: Routine axial imaging was obtained of the abdomen and pelvis following the intravenous injection of 100 cc of Omnipaque 240. Delayed imaging was obtained of the kidneys ureters and bladder. Sagittal coronal reconstructions were reviewed. Comparison is made to the study of 08/01/2017. FINDINGS: The lung bases reveal stable 4-5 millimeter nodules in both lower lobes compatible with stable pulmonary nodular metastases. Pleural fluid is not seen. There are no localized infiltrates. The liver is enlarged. There is a stable irregular poorly marginated mass in the right hepatic lobe measuring 9.3 cm x 10.8 cm x 13 cm with associated dilated ducts and calcifications. There are additional lesions more superiorly in the right hepatic lobe and posterior medially in the right hepatic lobe also unchanged. The gallbladder appears normal. There is mild dilatation of the pancreatic duct unchanged. Pancreas otherwise is normal in size. The spleen and adrenal glands appear normal. The kidneys enhance normally. The vascular structures otherwise enhance normally. There is left-sided ileostomy site noted. There ysss-ac-bwfarbvm distention of small-bowel loops in the left lower quadrant. Partial mechanical small bowel obstruction cannot be excluded. This is unchanged from the previous study. There is no evidence of free fluid. In the pelvis the uterus and bladder appear normal. There is a stable exophytic rectal mass unchanged from the previous examination. The skeletal structures reveal stable benign hemangioma in the L3 vertebral body. IMPRESSION: Left-sided ileostomy site noted. Jdhz-gv-zltkrosi distention of small-bowel loops in the left lower quadrant unchanged from the previous study. Partial mechanical small bowel obstruction cannot be excluded. Stable hepatic lesions as described. Stable pulmonary nodular metastases in the lung bases. Stable irregular exophytic rectal neoplasm. Transcribed By: RB Dictated By: CÉSAR MCKNIGHT MD Electronically Authenticated By: CÉSAR MCKNIGHT MD Signed Date/Time: 08/12/172149 Critical care attestation.: If time is entered above; I have spent that time in minutes in the direct care of this critically ill patient, excluding procedure time. ED Disposition Clinical Impression: Colon cancer metastasized to multiple sites, Rectal bleeding Disposition: - TO HOME OR SELFCARE Is pt being admited?: No Does the pt Need Aspirin: No Condition: Stable Additional Instructions: Take pain medication, nausea medication as directed. Follow up in the morning with your urban redevelopment specialist Dr. Tomasz Matthew Address: [address] [place] [address] 08/13/17 02:32 Return to the ER right away with you pain, worsened pain, migration of pain, fevers, chills, lethargy, irritability, projectile vomiting, change in mental status, confusion, inability to tolerate liquid feeds. Prescriptions: Ondansetron [Zofran Odt] 4 mg PO Q8HR PRN #20 tab.rapdis PRN Reason: Nausea oxyCODONE [Roxicodone] 5 mg PO Q6HR PRN #15 tablet PRN Reason: Pain Referrals: SALONI MONTELONGO MD [Staff Physician] - 3-5 Days PARUL CASTILLO MD [Staff Physician] - 3-5 Days Forms: Accompanied Note
[2017-08-12] MEDS ORDERED: NACL ONE (23:23)
[2017-08-13 01:21] LABS: Bilirubin,Urine NEG (Negative); Blood,Urine NEG (Negative); Color,Urine Yellow (Yellow); Mucus,Urine FEW /HPF; Nitrite,Urine NEG (Negative); Protein,Urine <15 mg/dL mg/dL (Negative)
--- NOTE | 2017-08-13 01:54 | Cat Scan Report ---
FINAL REPORT EXAM: CT ABDOMEN PELVIS W CON HISTORY: abd pain TECHNIQUE: Routine axial imaging was obtained of the abdomen and pelvis following the intravenous injection of 100 cc of Omnipaque 240. Delayed imaging was obtained of the kidneys ureters and bladder. Sagittal coronal reconstructions were reviewed. Comparison is made to the study of 08/01/2017. FINDINGS: The lung bases reveal stable 4-5 millimeter nodules in both lower lobes compatible with stable pulmonary nodular metastases. Pleural fluid is not seen. There are no localized infiltrates. The liver is enlarged. There is a stable irregular poorly marginated mass in the right hepatic lobe measuring 9.3 cm x 10.8 cm x 13 cm with associated dilated ducts and calcifications. There are additional lesions more superiorly in the right hepatic lobe and posterior medially in the right hepatic lobe also unchanged. The gallbladder appears normal. There is mild dilatation of the pancreatic duct unchanged. Pancreas otherwise is normal in size. The spleen and adrenal glands appear normal. The kidneys enhance normally. The vascular structures otherwise enhance normally. There is left-sided ileostomy site noted. There shfc-hb-otyxhufu distention of small-bowel loops in the left lower quadrant. Partial mechanical small bowel obstruction cannot be excluded. This is unchanged from the previous study. There is no evidence of free fluid. In the pelvis the uterus and bladder appear normal. There is a stable exophytic rectal mass unchanged from the previous examination. The skeletal structures reveal stable benign hemangioma in the L3 vertebral body. IMPRESSION: Left-sided ileostomy site noted. Cryw-nq-dtockcmz distention of small-bowel loops in the left lower quadrant unchanged from the previous study. Partial mechanical small bowel obstruction cannot be excluded. Stable hepatic lesions as described. Stable pulmonary nodular metastases in the lung bases. Stable irregular exophytic rectal neoplasm.
[2017-08-13] MEDS ORDERED: NACL 0.9% 1000 ML 1,000 ML ONE (01:56)
[2017-08-13] MEDS ORDERED: FLUSH HEPARIN IV ONE (03:16)
[2017-08-13] MEDS ORDERED: PERCOCET 5/325 PO ONE (03:21)
[2017-08-13 03:52] VITALS: BP 103/62
== END 2017-08-13 03:52 | disposition home or self-care (01) ==
LOC: ED 18:13
DX: K62.5 Hemorrhage of anus and rectum (principal); C18.9 Malignant neoplasm of colon, unspecified; C78.00 Secondary malignant neoplasm of unspecified lung; C78.7 Secondary malignant neoplasm of liver and intrahepatic bile duct
CPT/HCPCS: 36415; 74177; 80053; 81001; 82140; 82271; 83690; 85025; 85610; 85730; 86850; 86900; 86901; 93005; 93010; 96361; 96374; 99285; J1170; J1642; J7030; Q9966

== ENCOUNTER 2017-10-26 11:35 | Emergency (ER) | payer MEDICAID ==
--- NOTE | 2017-10-26 14:38 | Emergency Department Report ---
Chief Complaint: Abdominal Pain Stated Complaint: ABD PAIN/STAGE 4 COLON CANCER Time Seen by Provider: 10/26/17 14:26 - HPI History of Present Illness: Pt states she has a cc pmhx of stage 4 colon CA with " mets to the liver" Pt presents to fast track with temp of 99.2, hr 122 sys bp less than 100 with cc of severe abd pain Pt states she had radiation on Saturday, 4 days ago - ROS Review of Systems: pt has ros of fever, nausea, abd pain , - Exam Vital Signs: Vital Signs 10/26/17 11:39 Temperature 99.2 F Pulse Rate 122 H Respiratory 16 Rate Blood Pressure 96/57 O2 Sat by Pulse 98 Oximetry MSE screening note: Focused history and physical exam performed. Due to findings the following was ordered: pt may need rectal temp, cultures, septic work up, may be neutropenic. Plan= will send to main ED for eval and work up. ED Disposition for MSE Condition: Stable Instructions: Abdominal Pain (ED) Referrals: PRIMARY CARE, [Primary Care Provider] - 3-5 Days
--- NOTE | 2017-10-26 14:43 | Emergency Department Report ---
Blank Doc - Documentation Documentation: mse screening pt just brought into a room at 2:30 pt has cc of abd pain weakness vitals: pt needs rectal temp, may be febrile, has tachycardia, has systolic bp less than 100=pt may be septic. pt repots pmhx of colon cancer with mets to liver, and recent radiation. I called charge nurse, requested main ed septic work up, nurse Arleen acknowledged.
[2017-10-26] MEDS ORDERED: NACL 0.9% 1000 ML 1,000 ML IV ONE (14:46)
[2017-10-26 16:13] LABS: Hematocrit 28.7 % (30.3-42.9); Hemoglobin 9.6 gm/dl (10.1-14.3); Mean Corpuscular HGB Conc 33 % (30-34); Mean Corpuscular Hemoglobin 31 pg (28-32); Mean Corpuscular Volume 93 fl (79-97); Platelet Count 429 K/mm3 (140-440); Red Blood Count 3.08 M/mm3 (3.65-5.03)
[2017-10-26 16:20] LABS: Red Cell Distribution Width 21.6 % (13.2-15.2)
[2017-10-26 16:22] LABS: INR 1.02 (0.87-1.13)
[2017-10-26 16:23] LABS: Partial Thromboplastin Time 29.7 Sec. (24.2-36.6)
[2017-10-26 16:35] LABS: Alanine Aminotransferase 40 units/L (7-56); BUN/Creatinine Ratio 37; Blood Urea Nitrogen 11 mg/dL (7-17); Calcium 8.5 mg/dL (8.4-10.2); Hemolysis Index 0
--- NOTE | 2017-10-26 16:44 | XRay Report ---
FINAL REPORT EXAM: XR CHEST 1V AP HISTORY: tachycarida sepsis work up , history of colon malignancy TECHNIQUE: One view examination of the chest PRIORS: Chest CT 06/27/2017 FINDINGS: A right venous catheter remains in place with distal tip near the cavoatrial junction region. Two faint nodules appear larger in the right midlung, largest 10 mm. Left lung clear. No pneumothorax or pleural effusion. Normal cardiac size without vascular congestion. No acute displaced fracture. Large lung volumes once again may reflect pulmonary emphysema. IMPRESSION: Faint nodules appears slightly larger in the right midlung. These may again reflect metastatic foci
[2017-10-26 17:11] LABS: Band Neutrophils # (Manual) 0.1 K/mm3; Basophils % (Manual) 0 % (0.0-1.8); Total Cells Counted 100
[2017-10-26 17:12] LABS: Anisocytosis 1+
[2017-10-26 17:13] LABS: Hypochromasia 1+; Macrocytosis 1+; Ovalocytes Few; Platelet Estimate Consistent w Auto
--- NOTE | 2017-10-26 19:58 | Emergency Department Report ---
ED Abdominal Pain HPI - General Chief Complaint: Abdominal Pain Stated Complaint: ABD PAIN/STAGE 4 COLON CANCER Time Seen by Provider: 10/26/17 14:26 Source: patient Mode of arrival: Wheelchair Limitations: No Limitations - History of Present Illness MD Complaint: abdominal pain -: Gradual, days(s) (1 day) Location: RUQ Radiation: none Migration to: no migration Severity scale (0 -10): 9 Quality: cramping, aching Consistency: constant Improves With: nothing Worsens With: movement Context: other (metastatic colon cancer) Associated Symptoms: denies other symptoms - Related Data Home Medications Medication Instructions Recorded Confirmed Last Taken HYDROcodone/APAP 7.5-325 [[place] 1 each PO Q4-6H PRN 08/01/17 08/01/17 Unknown 7.5/325] Ondansetron [Zofran ODT TAB] 8 mg PO Q8HR PRN 08/01/17 08/01/17 Unknown Previous Rx's Medication Instructions Recorded Last Taken Type Albuterol Sulfate [Proventil HFA] 1 - 2 puff IH Q4H PRN #1 hfa.aer.ad 07/13/14 Unknown Rx Ondansetron [Zofran Odt] 4 mg PO Q8HR PRN #20 tab.rapdis 08/13/17 Unknown Rx oxyCODONE [Roxicodone] 5 mg PO Q6HR PRN #15 tablet 08/13/17 Unknown Rx Allergies Allergy/AdvReac Type Severity Reaction Status Date / Time No Known Allergies Allergy Verified 10/26/17 11:39 ED Review of Systems ROS: Stated complaint: ABD PAIN/STAGE 4 COLON CANCER Other details as noted in HPI Constitutional: denies: chills, fever Eyes: as per HPI ENT: denies: ear pain, throat pain Respiratory: denies: cough, shortness of breath, wheezing Cardiovascular: denies: chest pain, palpitations Endocrine: denies: excessive sweating, flushing, intolerance to cold, intolerance to heat Gastrointestinal: as per HPI Genitourinary: denies: urgency, dysuria, discharge Musculoskeletal: back pain Neurological: denies: headache, weakness, paresthesias Psychiatric: anxiety, depression ED Past Medical Hx - Past Medical History Hx Hypertension: No Hx Congestive Heart Failure: No Hx Diabetes: No Hx Liver Disease: No Hx Renal Disease: No Hx Seizures: No Hx Asthma: Yes Hx COPD: No Additional medical history: 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, on Chemo, recently completed radiation therapy - Surgical History Additional Surgical History: PAC - R, ex-lap to remove tumor, colostomy - Social History Smoking Status: Never Smoker - Medications Home Medications: Home Medications Medication Instructions Recorded Confirmed Last Taken Type Albuterol Sulfate [Proventil HFA] 1 - 2 puff IH Q4H PRN #1 hfa.aer.ad 07/13/14 08/01/17 Unknown Rx HYDROcodone/APAP 7.5-325 [[place] 1 each PO Q4-6H PRN 08/01/17 08/01/17 Unknown History 7.5/325] Ondansetron [Zofran ODT TAB] 8 mg PO Q8HR PRN 08/01/17 08/01/17 Unknown History Ondansetron [Zofran Odt] 4 mg PO Q8HR PRN #20 tab.rapdis 08/13/17 Unknown Rx oxyCODONE [Roxicodone] 5 mg PO Q6HR PRN #15 tablet 08/13/17 Unknown Rx ED Physical Exam - General Limitations: No Limitations General appearance: alert, in distress, other (moderate cachexia) - Head Head exam: Present: atraumatic - Eye Eye exam: Present: normal appearance - ENT ENT exam: Present: mucous membranes moist - Neck Neck exam: Present: normal inspection - Respiratory Respiratory exam: Present: normal lung sounds bilaterally. Absent: respiratory distress - Cardiovascular Cardiovascular Exam: Present: regular rate, normal rhythm. Absent: systolic murmur, diastolic murmur, rubs, gallop - GI/Abdominal GI/Abdominal exam: Present: distended (mild ascites), tenderness (moderate tenderness, worse in right upper quadrant, no guarding), normal bowel sounds. Absent: guarding, rebound - Rectal Rectal exam: Present: deferred ED Course Vital Signs 10/26/17 10/26/17 11:39 15:59 Temperature 99.2 F 99.8 F H Pulse Rate 122 H 107 H Respiratory 16 17 Rate Blood Pressure 96/57 Blood Pressure 115/53 [Right] O2 Sat by Pulse 98 97 Oximetry - Reevaluation(s) Reevaluation #1: 10/26/17 22:30 On initial examination, which was interrupted by emergency elsewhere, patient was in discomfort, but during the meantime, I decided to take her own medications, which she was fearful of. Reevaluation #2: 10/26/17 22:30 On repeat examination after patient had taken medication, she reports that pain has subsided and she is much more comfortable after taking her own morphine and Marinol. He had been concerned after reading potential complications of taking medications, but was reassured after being explained that these medications were designed just for her conditions, and that the side effects were mostly theoretical and for people who were not experienced on such medications. ED Medical Decision Making - Lab Data Result diagrams: 10/26/17 15:44 10/26/17 15:44 - EKG Data EKG shows normal: sinus rhythm Rate: tachycardia (nonspecific tracing with no acute ST-T wave changes, with normal T waves, normal ST segments, no ectopy, and appropriate tachycardia for patient's condition) - Radiology Data Radiology results: report reviewed Apparent modest increase of size of right mid lung nodules, probably significant for metastasis, pre-existing. - Medical Decision Making Patient is clinically stable, improved on taken her own medication, had been fearful after written of potential complications of combining pain medications with her other medications, including Marinol. Patient was reassured that she was stable, that this medication regimen versus signed for her, and that complications were a potential risk, but were theoretical and quite rare, and that she should not refrain from taking medications while she is in acute pain for fear of theoretical complications. Critical Care Time: No Critical care attestation.: If time is entered above; I have spent that time in minutes in the direct care of this critically ill patient, excluding procedure time. ED Disposition Clinical Impression: Metastasis from colon cancer, Liver metastasis, Pain of metastatic malignancy Colon cancer Qualifiers: Colon location: unspecified part of colon Qualified Code(s): C18.9 - Malignant neoplasm of colon, unspecified Disposition: DC-01 TO HOME OR SELFCARE Is pt being admited?: No Does the pt Need Aspirin: No Condition: Fair Instructions: Abdominal Pain (ED) Referrals: PRIMARY CARE, [Primary Care Provider] - 3-5 Days Time of Disposition: 22:26
[2017-10-26] MEDS ORDERED: MOTRIN PO ONE ×2 (22:47→22:48)
[2017-10-27 02:05] VITALS: BP 108/58
== END 2017-10-26 23:00 | disposition home or self-care (01) ==
LOC: ED 11:35
DX: C18.9 Malignant neoplasm of colon, unspecified (principal); C78.7 Secondary malignant neoplasm of liver and intrahepatic bile duct; J45.909 Unspecified asthma, uncomplicated; Z93.3 Colostomy status; Z79.899 Other long term (current) drug therapy
CPT/HCPCS: 36415; 71045; 80053; 82140; 85007; 85025; 85610; 85730; 87040; 93005; 93010; 99283; J7030; 96360

== ENCOUNTER 2017-11-28 09:56 | Outpatient (CLI) | payer MEDICAID ==
--- NOTE | 2017-11-28 15:36 | Magnetic Resonance Report ---
MRI BRAIN WITHOUT AND WITH CONTRAST: 11/28/17 11:00:00 CLINICAL: Stage IV colon cancer and headaches. TECHNIQUE: Axial diffusion, T1, T2, gradient echo T2*, and coronal and axial FLAIR and sagittal T1 plus coronal and axial postcontrast T1 sequences on a 1.5 Che magnet. 12.0 cc of Multihance was injected intravenously for the contrast portion of the exam. Consent was obtained prior to the administration of contrast. FINDINGS: Normal ventricles and sulci. No restricted diffusion. No mass or enhancing lesion. Two nonspecific subtle left parietal lobe white matter T2 hyperintensities on T2 and FLAIR. The larger lesion measures 3 mm in neither enhance. No hemorrhage, edema or extra-axial collection. Normal pituitary and optic chiasm. The brainstem and cerebellum are normal. Intact vascular flow voids. The orbits, sinuses and soft tissues are normal. Normal calvarium and skull base. IMPRESSION: 1.Two subtle nonspecific left parietal lobe white matter lesions of uncertain significance. These are not likely metastatic lesions. Recommend followup with MRI in six months. 2. No acute change.
--- NOTE | 2017-12-02 10:04 | PET Report ---
PET/CT:11/28/17 09:56:00 CLINICAL: Colon cancer restaging. RADIOPHARMACEUTICAL: 14.06mCi F18-FDG. COMPARISON: 01/24/17 PET/CT TECHNIQUE- Following intravenous injection of F-18 FDG and an approximately 60 minute uptake period, CT and PET images from the mid skull to the upper thighs were acquired with the patient in the fasted state. No contrast was administered. The CT protocol used for this PET CT study is designed for attenuation correction and anatomic localization of PET abnormalities. This studio control operator CT is not desired to produce and cannot replace, [id number] diagnostic CT scans with specific imaging protocols for different body parts and indications. Plasma glucose at the time of this test: 91g/dl. The standardized uptake values (SUV) are normalized to patient body weight and indicate the highest activity concentration (SUV max) in a given disease site. FINDINGS: Brain--Physiologic FDG uptake in the visualized regions of the brain. Neck--Physiologic FDG uptake . Chest--Physiologic FDG uptake in mediastinal blood pool and myocardium. Lungs--Multiple new bilateral multilobar noncalcified lung nodules. A new 1.1 x 0.9 cm right lower lobe nodule is the most FDG avid with SUV 2.3. The previously described right lower lobe lung nodule now measures 1.1 x 0.9 cm with SUV 1.8 compared to 0.7 x 0.7 cm on the last exam. A 1.0 x 0.8 cm left lower lobe nodule. Pleura/pericardium--No abnormal uptake. Thoracic nodes--No abnormal uptake. Hepatobiliary--The liver has increased in size with increased size and number of hepatic masses. The right lobe measures 20 cm in length. An irregular FDG avid right hepatic mass spans approximately 15 cm in craniocaudal dimension by 11 cm transverse dimension with SUV 9.3. FDG avid left hepatic mass measures 4.4 x 3.6 cm with SUV 7.0. Spleen--No abnormal uptake. Pancreas--No abnormal uptake. Adrenal Glands--No abnormal uptake. Kidneys/Ureters/Bladder--No abnormal uptake. Abdominopelvic Nodes--No abnormal uptake. Bowel/Peritoneum/Mesentery--A new sigmoid colon mass measures approximately 4 cm x 3 cm with SUV 13.2. There is a left lower quadrant colostomy. Pelvic organs--No abnormal uptake. Bones/Soft Tissues--No abnormal uptake. No suspicious bone lesions. IMPRESSION- Progression of disease with increased size and number of pulmonary metastases and hepatic metastases and a new FDG avid sigmoid colon mass.
== END 2017-11-28 09:57 | disposition home or self-care (01) ==
LOC: PET 09:56
PROVIDERS: ATTEND Internal Medicine Hematology & Oncology
DX: C18.8 Malignant neoplasm of overlapping sites of colon (principal); R51 Headache; J45.909 Unspecified asthma, uncomplicated; F32.2 Major depressive disorder, single episode, severe without psychotic features; J18.9 Pneumonia, unspecified organism
CPT/HCPCS: 70553; 78815; 82962; A9552; A9577

== ENCOUNTER 2017-12-26 09:39 | Day surgery (SDC) | payer MEDICAID ==
[2017-12-26 11:32] LABS: Basophils # (Auto) 0.1 K/mm3 (0.0-0.1); Basophils % (Auto) 0.9 % (0.0-1.8); Eosinophils # (Auto) 1.6 K/mm3 (0.0-0.4); Hemoglobin 12.3 gm/dl (10.1-14.3); Lymphocytes # (Auto) 0.9 K/mm3 (1.2-5.4); Lymphocytes % (Auto) 6.6 % (13.4-35.0); Mean Corpuscular HGB Conc 32 % (30-34); Mean Corpuscular Hemoglobin 32 pg (28-32); Mean Corpuscular Volume 98 fl (79-97); Monocytes % (Auto) 7.4 % (0.0-7.3); Platelet Count 308 K/mm3 (140-440); Red Blood Count 3.89 M/mm3 (3.65-5.03); Red Cell Distribution Width 17.1 % (13.2-15.2)
[2017-12-26 11:41] LABS: Partial Thromboplastin Time 30.7 Sec. (24.2-36.6)
[2017-12-26] MEDS ORDERED: BENADRYL ONE (12:15)
[2017-12-26] MEDS ORDERED: SUBLIMAZE IV ONE (12:48)
[2017-12-26] MEDS ORDERED: VERSED IV ONE (12:48)
[2017-12-26] MEDS ORDERED: BENADRYL IV ONE (14:00)
[2017-12-26 14:52] VITALS: BP 123/76
[2017-12-26] MEDS ORDERED: FLUSH HEPARIN IV SCH (15:26)
== END 2017-12-26 16:17 | disposition home or self-care (01) ==
LOC: CATHLABREC 09:39
PROVIDERS: ATTEND Internal Medicine Hematology & Oncology
DX: C78.7 Secondary malignant neoplasm of liver and intrahepatic bile duct (principal); C18.8 Malignant neoplasm of overlapping sites of colon
CPT/HCPCS: 36415; 47000; 77012; 85025; 85610; 85730; 88172; 88173; 88307; 88341; 88342; J1200; J1642; J2250; J3010; 88104